=== PATIENT | female | born 1970 | race Caucasian/White ===

== ENCOUNTER 2020-12-20 12:53 | Emergency (ER) | payer BC ==
[2020-12-21 04:55] LABS: SARS-CoV-2 PCR by NAA Not Detected (NotDetected)
== END 2020-12-20 13:26 | disposition home or self-care (01) ==
LOC: NAV ERS 12:53
DX: B34.9 Viral infection, unspecified (principal); Z20.822 Contact with and (suspected) exposure to COVID-19; E03.9 Hypothyroidism, unspecified; R73.03 Prediabetes
CPT/HCPCS: 87635; 99283; U0003; U0005